=== PATIENT | male | born 1960 | race Caucasian/White ===

== ENCOUNTER 2022-06-25 01:08 | Emergency (ER) | payer OTHER ==
[2022-06-25 01:39] LABS: #Basophils 0.1 10x3/uL (0.0-0.2); #Eosinphils 0.9 10x3/uL (0.0-0.5); #Monocytes 0.6 10x3/uL (0.0-1.1); #Neutrophils 4.2 10x3/uL (1.5-8.4); %Basophils 0.5 % (0.0-2.0); %Eosinophils 9.4 % (0.0-6.0); %Lymphocytes 37.3 % (18.0-47.0); %Monocytes 6.6 % (0.0-10.0); Hemoglobin 13.9 g/dL (13.5-17.5); Mean Corpuscular HGB CONC 34.7 g/dL (32.0-36.0); Mean Corpuscular Volume 92.2 fl (81.2-95.1); Mean Platelet Volume 8.9 fl (7.4-10.4); Platelet Count 341 10x3/uL (150-450); Red Blood Cell (RBC) Count 4.35 10x6/uL (4.32-5.72); White Blood Cell (WBC) Count 9.2 10x3/uL (3.5-10.5)
[2022-06-25] MEDS ORDERED: Ondansetron PF 4 MG/2 ML Vial ONE (01:42)
[2022-06-25] MEDS ORDERED: Ketorolac Tromethamine 30 MG/ML VIAL ONE (01:42)
[2022-06-25 02:00] LABS: ALT (SGPT) 17 U/L (8-55); AST (SGOT) 27 U/L (5-34); Albumin 4.4 g/dL (3.4-4.8); Alkaline Phosphatase 61 U/L (40-110); Anion Gap 15 mmol/L (10-20); BUN (Urea Nitrogen) 13 mg/dL (8.4-25.7); Bilirubin, Total 0.6 mg/dL (0.2-1.2); Calc. Creatinine Clearance 0 mL/min (70-130); Calcium 9.7 mg/dL (7.8-10.44); Carbon Dioxide 25 mmol/L (23-31); Chloride 101 mmol/L (98-107); Estimated GFR 97; Globulin 2.7 g/dL (2.4-3.5); Glucose 123 mg/dL (80-115); Lipase 23 U/L (8-78); Potassium 3.5 mmol/L (3.5-5.1); Protein, Total 7.1 g/dL (5.8-8.1); Sodium 137 mmol/L (136-145)
== END 2022-06-25 02:50 | disposition home or self-care (01) ==
LOC: CSHERS 01:08
DX: K80.20 Calculus of gallbladder without cholecystitis without obstruction (principal); I10 Essential (primary) hypertension; Z79.899 Other long term (current) drug therapy
CPT/HCPCS: 76705; 80053; 83690; 85025; 93005; 96374; 96375; J1885; J2405

== ENCOUNTER 2022-06-25 11:17 | Day surgery (SDC) | payer OTHER ==
[2022-06-25 13:44] VITALS: BMI 34.0
[2022-06-25] MEDS ORDERED: EPINEPHrine 1 MG/ML AMP ONE (15:20)
[2022-06-25] MEDS ORDERED: Bupivacaine 0.25% HCL 30 ML VIAL ONE (15:20)
[2022-06-25] MEDS ORDERED: Iopamidol 0 ML ONE (15:20)
[2022-06-25] MEDS ORDERED: CEFAZOLIN 2 GM VIAL ONE (17:06)
[2022-06-25] MEDS ORDERED: Fentanyl 100 MCG/2 ML VIAL ONE (17:09)
[2022-06-25] MEDS ORDERED: PROPOFOL 20 ML ONE (17:09)
[2022-06-25] MEDS ORDERED: Midazolam HCl 2 mg/2 ml Vial ONE (17:09)
[2022-06-25] MEDS ORDERED: ePHEDrine Sulfate 50 MG/10 ML VIAL ONE (17:38)
[2022-06-25] MEDS ORDERED: PHENYLEPHRINE-NS 100 MCG/ML 10 ML SYRINGE ONE ×2 (17:52→17:53)
[2022-06-25] MEDS ORDERED: Ondansetron PF 4 MG/2 ML Vial ONE (17:52)
[2022-06-25] MEDS ORDERED: Dexamethasone 20 MG/5 ML VIAL ONE (17:52)
[2022-06-25] MEDS ORDERED: Glycopyrrolate 0.2 MG/ML 5 ML SYRINGE ONE (17:56)
[2022-06-25] MEDS ORDERED: Ketorolac Tromethamine 30 MG/ML VIAL ONE (18:22)
== END 2022-06-25 19:56 | disposition home or self-care (01) ==
LOC: CSHSDC 11:17
PROVIDERS: ATTEND Surgery
PROC: 0FT44ZZ Resection of Gallbladder, Percutaneous Endoscopic Approach (ICD-10-PCS; principal; 2022-06-25)
DX: K80.00 Calculus of gallbladder with acute cholecystitis without obstruction (principal); I10 Essential (primary) hypertension; E78.00 Pure hypercholesterolemia, unspecified; J45.909 Unspecified asthma, uncomplicated; Z86.16 Personal history of COVID-19; Z86.718 Personal history of other venous thrombosis and embolism; Z79.899 Other long term (current) drug therapy
CPT/HCPCS: 88304; C1713; J0171; J0690; J1100; J1885; J2250; J2405; J2704; J3010; Q9967; S0020

== ENCOUNTER 2023-08-25 10:26 | Outpatient (CLI) | payer MEDICARE | END 2023-08-25 10:27 | disposition home or self-care (01) | LOC: CSHULT 10:26 | PROVIDERS: ATTEND Internal Medicine | DX: Z13.6 Encounter for screening for cardiovascular disorders (principal) | CPT/HCPCS: 76706 ==

== ENCOUNTER 2024-02-24 10:03 | Outpatient (CLI) | payer MEDICARE | END 2024-02-24 10:04 | disposition home or self-care (01) | LOC: CSHULT 10:03 | PROVIDERS: ATTEND Internal Medicine | DX: R79.89 Other specified abnormal findings of blood chemistry (principal); K76.0 Fatty (change of) liver, not elsewhere classified; Z90.49 Acquired absence of other specified parts of digestive tract; N28.1 Cyst of kidney, acquired | CPT/HCPCS: 76700 ==

== ENCOUNTER 2024-05-25 16:00 | Outpatient (CLI) | payer MEDICARE | END 2024-05-25 16:01 | disposition home or self-care (01) | LOC: CSHSLEEP 16:00 | PROVIDERS: ATTEND Internal Medicine | DX: G47.33 Obstructive sleep apnea (adult) (pediatric) (principal); R53.83 Other fatigue; R51.9 Headache, unspecified; F41.9 Anxiety disorder, unspecified; E66.9 Obesity, unspecified; Z68.37 Body mass index [BMI] 37.0-37.9, adult; R06.83 Snoring; J44.9 Chronic obstructive pulmonary disease, unspecified; I10 Essential (primary) hypertension | CPT/HCPCS: 95811 ==